=== PATIENT | female | born 1930 | race Caucasian/White ===

== ENCOUNTER → 2016-11-06 | Outpatient (CLI) | payer MEDICARE, BC, MEDICAID ==
[2016-11-06 12:58] LABS: INR - (THERAPEUTIC) 2.74 (0.92-1.07); PROTIME 29.1 SECONDS (9.8-11.4)
== END | disposition disaster alternative care site (69) ==
PROVIDERS: Internal Medicine
DX: Z79.01 Long term (current) use of anticoagulants (principal)